=== PATIENT | male | born 1980 | race Caucasian/White ===

== ENCOUNTER 2020-07-18 22:01 | Emergency (ER) | payer OTHER ==
[2020-07-18 23:08] LABS: BASOPHIL 0.7 % (0-2); EOSINOPHIL 1.7 % (0-5); HCT 42.9 % (42.0-52.0); HGB 15.2 g/dl (13.2-18.0); LYMPHOCYTE 40.3 % (15-48); MCH 31.1 pg (25.0-31.0); MCHC 35.4 g/dL (32.0-36.0); MCV 87.9 fL (78.0-100.0); MONOCYTE 8.3 % (0-12); MPV 9.8 fL (6.0-9.5); NEUTROPHIL 48.6 % (41-80); NRBC 0; PLT 169 K/uL (150-400); RBC 4.88 M/uL (4.70-6.00); RDW 12.6 % (11.5-14.0); WBC 7.1 K/uL (4.0-10.5)
[2020-07-18 23:21] LABS: ALBUMIN 3.8 g/dL (3.4-5.0); BILIRUBIN - TOTAL 0.4 mg/dL (0.2-1.0); CREATININE 1.17 mg/dL (0.67-1.17); GLOBULIN (CALCULATION) 3.5 g/dL; POTASSIUM 3.6 mmol/L (3.5-5.1); TOTAL PROTEIN 7.3 g/dL (6.4-8.2)
[2020-07-18 23:27] LABS: LACTIC ACID 1.5 mmol/L (0.4-1.9)
[2020-07-19 00:40] LABS: BILIRUBIN NEGATIVE (NEGATIVE); BLOOD NEGATIVE Ery/uL (NEGATIVE); CLARITY CLEAR (CLEAR); COLOR YELLOW (YELLOW); GLUCOSE (U) NORMAL (NORMAL); LEUKOCYTES NEGATIVE Leu/uL (NEGATIVE); NITRITE NEGATIVE (NEGATIVE); PROTEIN NEGATIVE (NEGATIVE); SPECIFIC GRAVITY 1.025 (1.001-1.030); UROBILINOGEN 0.2 mg/dL (0.2-1.0)
[2020-07-19] MEDS ORDERED: PROTONIX 40MG T40 MG PO (01:39)
[2020-07-19] MEDS ORDERED: CARAFATE1 GM PO (01:39)
[2020-07-19] MEDS ORDERED: PERCOCET 5-3251 EACH PO (01:39)
[2020-09-04] MEDS ORDERED: ACETAMINOPHEN500 M1 PO (08:59)
[2020-09-04] MEDS ORDERED: OXY-IR 5MG5 MG PO (08:59)
[2020-09-04] MEDS ORDERED: COLACE100 MG PO (08:59)
[2020-09-04] MEDS ORDERED: MOTRIN600 MG PO (08:59)
== END 2020-07-19 02:06 | disposition home or self-care (01) ==
LOC: FER 22:01
PROVIDERS: Emergency Medicine Emergency Medical Services
DX: K80.20 Calculus of gallbladder without cholecystitis without obstruction (principal); Z90.49 Acquired absence of other specified parts of digestive tract; Z88.1 Allergy status to other antibiotic agents
CPT/HCPCS: 36415; 80053; 81003; 83605; 83690; 85025; C9113; J1885; J2405; J7030; Q9967

== ENCOUNTER → 2020-09-04 | Day surgery (SDC) | payer OTHER ==
[~2020-09-04] VITALS: Ht 193 cm; Wt 140.6 kg
[~2020-09-04] MED LIST: ACETAMINOPHEN500 M1 PO; CARAFATE1 GM PO; COLACE100 MG PO; MOTRIN600 MG PO; OXY-IR 5MG5 MG PO; PERCOCET 5-3251 EACH PO; PROTONIX 40MG T40 MG PO
[2020-09-04 07:32] LABS: ALBUMIN 3.7 g/dL (3.4-5.0); BILIRUBIN - TOTAL 0.6 mg/dL (0.2-1.0); GLOBULIN (CALCULATION) 3.1 g/dL; TOTAL PROTEIN 6.8 g/dL (6.4-8.2)
== END | disposition home or self-care (01) ==
LOC: FAS 06:28
PROVIDERS: Anesthesiology
DX: K80.64 Calculus of gallbladder and bile duct with chronic cholecystitis without obstruction (principal); Z88.1 Allergy status to other antibiotic agents; E66.01 Morbid (severe) obesity due to excess calories; Z68.37 Body mass index [BMI] 37.0-37.9, adult
CPT/HCPCS: 36415; 74300; 80053; 82150; 83690; 93005; J1170; J1644; J1885; J2250; J2405; J2704; J2710; J3010; J7120; Q9967

== ENCOUNTER 2021-01-18 09:15 | Emergency (ER) | payer OTHER ==
[2021-01-18 10:06] LABS: BASOPHIL 0.3 % (0-2); EOSINOPHIL 0 % (0-5); HCT 41.6 % (42.0-52.0); HGB 14.3 g/dl (13.2-18.0); LYMPHOCYTE 26.1 % (15-48); MCH 30.3 pg (25.0-31.0); MCHC 34.4 g/dL (32.0-36.0); MCV 88.1 fL (78.0-100.0); MONOCYTE 3.8 % (0-12); MPV 10.8 fL (6.0-9.5); NRBC 0; PLT 112 K/uL (150-400); RBC 4.72 M/uL (4.70-6.00)
[2021-01-18 10:22] LABS: ALBUMIN 3.4 g/dL (3.4-5.0); BILIRUBIN - TOTAL 0.4 mg/dL (0.2-1.0); BUN/CREAT RATIO (CALC) 6.9 RATIO; C-REACTIVE PROTEIN 4.1 mg/dL (<=0.90); CREATININE 1.01 mg/dL (0.67-1.17); GLOBULIN (CALCULATION) 3.4 g/dL; MAGNESIUM 2.1 mg/dL (1.8-2.4); POTASSIUM 4.1 mmol/L (3.5-5.1); TOTAL PROTEIN 6.8 g/dL (6.4-8.2)
[2021-01-18] MEDS ORDERED: MEDROL 4MG DOSEP4 MG PO (14:21)
[2021-01-18] MEDS ORDERED: VENTOLIN HFA18 GM INH (14:21)
[2021-01-18] MEDS ORDERED: ONDANSETRON ODT4 MG PO (14:21)
[2021-01-18] MEDS ORDERED: MUCINEX D TABL1 EACH PO (14:21)
== END 2021-01-18 14:42 | disposition home or self-care (01) ==
LOC: FER 09:15
PROVIDERS: Emergency Medicine
DX: U07.1 COVID-19 (principal); Z88.1 Allergy status to other antibiotic agents; Z23 Encounter for immunization
CPT/HCPCS: 36415; 71250; 80053; 82728; 83615; 83735; 84145; 85025; 86140; 87880; 94640; 94664; J1885; J2930; J7030; M0243; Q0244